=== PATIENT | female | born 1970 | race Caucasian/White ===

== ENCOUNTER → 2016-08-31 | Outpatient (CLI) | payer OTHER ==
[~2016-08-31] VITALS: Ht 170.2 cm; Wt 72.6 kg
[~2016-08-31] MED LIST: SYNTHROID50 MCG PO
== END | disposition home or self-care (01) ==
LOC: AMB 09:14
PROC: 0DBP8ZX Excision of Rectum, Via Natural or Artificial Opening Endoscopic, Diagnostic (ICD-10-PCS; principal; 2016-08-31)
DX: K62.1 Rectal polyp (principal); K59.00 Constipation, unspecified
CPT/HCPCS: 88305